=== PATIENT | female | born 1985 | race American Indian/Alaskan Native ===

== ENCOUNTER 2016-10-24 21:55 | Emergency (ER) | payer OTHER ==
[2016-10-24 22:21] VITALS: BP 113/80
--- NOTE | 2016-10-25 08:46 | XRay Report ---
Right hip 2 views. History: Pain after trauma. Findings: There are no fractures or other acute findings. Calcification seen adjacent to the femoral head, also noted on the previous study and February of 2016. This may be related to old trauma or bursitis. Impression: No acute findings.
--- NOTE | 2016-10-29 19:20 | ED Elopement Review ---
ED Pt Elopement review - Call Back decision Pt Call Back Decision: Pt to F/U with PMD
== END 2016-10-25 05:51 | disposition left against medical advice (07) ==
LOC: ED 21:55
DX: M25.551 Pain in right hip (principal); Z53.21 Procedure and treatment not carried out due to patient leaving prior to being seen by health care provider

== ENCOUNTER 2017-07-16 16:25 | Emergency (ER) | payer MEDICAID, OTHER ==
[2017-07-16 16:52] VITALS: BP 107/63
--- NOTE | 2017-07-16 18:23 | XRay Report ---
FINAL REPORT EXAM: XR HIP 2-3V RT HISTORY: fall, pain TECHNIQUE: Right hip and AP pelvis PRIORS: None. FINDINGS: No fracture identified. No dislocation seen. Femoral head maintains a normal contour. Joint spaces within normal limits. Adjacent bony pelvis is unremarkable. Periarticular soft tissue calcification noted superior margin of the right hip. Two like a ordonez clips are noted in the pelvis IMPRESSION: Periarticular calcifications noted superior margin of the right hip could be degenerative in nature. Status post tubal ligation No acute traumatic abnormality identified
[2017-07-16] MEDS ORDERED: PERCOCET 5/325 PO ONE (19:09)
[2017-07-16] MEDS ORDERED: ZOFRAN ODT PO ONE (19:10)
[2017-07-16] MEDS ORDERED: MOTRIN PO ONE (19:10)
--- NOTE | 2017-07-16 19:18 | Emergency Department Report ---
ED Lower Extremity HPI - General Chief Complaint: Back Pain/Injury Stated Complaint: HIP PAIN Time Seen by Provider: 07/16/17 19:03 Source: patient Mode of arrival: Ambulatory Limitations: No Limitations - History of Present Illness Initial Comments: 32-year-old female past medical history right hip dysplasia, right hip osteoarthritis presents with complaint of acute on chronic right hip pain. Patient states she accidentally fell out of a chair earlier this afternoon. Patient is ambulatory but state that her right hip aches. Patient is awake alert and oriented 3 but is in an irritated mood. States that she has an orthopedic physician she follows up with, has had multiple cortisone shots. -: This afternoon Injury: Hip: Right Place: home Severity: moderate Severity scale (0 -10): 6 Worsens With: weight bearing Context: fall - Related Data Previous Rx's Medication Instructions Recorded Last Taken Type Acetaminophen/Codeine [Tylenol #3] 1 tab PO Q4HR PRN #20 tablet 02/26/16 Unknown Rx Acetaminophen/Codeine [Tylenol 1 tab PO Q6H PRN #12 tab 07/16/17 Unknown Rx /Codeine # 3 tab] Allergies Allergy/AdvReac Type Severity Reaction Status Date / Time buspirone HCl [From BuSpar] Allergy Hives Verified 10/24/16 22:17 hydrocodone Allergy Itching Verified 10/24/16 22:18 ED Review of Systems ROS: Stated complaint: HIP PAIN Other details as noted in HPI Constitutional: denies: chills, fever Eyes: denies: eye pain, eye discharge, vision change ENT: denies: ear pain, throat pain Respiratory: denies: cough, shortness of breath, wheezing Cardiovascular: denies: chest pain, palpitations Endocrine: no symptoms reported Gastrointestinal: denies: abdominal pain, nausea, diarrhea Genitourinary: denies: urgency, dysuria, discharge Musculoskeletal: as per HPI, arthralgia (chronic right hip pain). denies: back pain, joint swelling Skin: denies: rash, lesions Neurological: denies: headache, weakness, paresthesias Psychiatric: denies: anxiety, depression Hematological/Lymphatic: denies: easy bleeding, easy bruising ED Past Medical Hx - Past Medical History Additional medical history: States "stomach issues". anxiety - Surgical History Additional Surgical History: Right hip surgery 2014. - Social History Smoking Status: Current Every Day Smoker - Medications Home Medications: Home Medications Medication Instructions Recorded Confirmed Last Taken Type Acetaminophen/Codeine [Tylenol #3] 1 tab PO Q4HR PRN #20 tablet 02/26/16 Unknown Rx Acetaminophen/Codeine [Tylenol 1 tab PO Q6H PRN #12 tab 07/16/17 Unknown Rx /Codeine # 3 tab] ED Physical Exam - General Limitations: No Limitations General appearance: alert, in no apparent distress - Head Head exam: Present: atraumatic, normocephalic - Eye Eye exam: Present: normal appearance, PERRL, EOMI - ENT ENT exam: Present: mucous membranes moist - Neck Neck exam: Present: normal inspection - Respiratory Respiratory exam: Present: normal lung sounds bilaterally. Absent: respiratory distress - Cardiovascular Cardiovascular Exam: Present: regular rate, normal rhythm. Absent: systolic murmur, diastolic murmur, rubs, gallop - GI/Abdominal GI/Abdominal exam: Present: soft, normal bowel sounds - Extremities Exam Extremities exam: Present: normal inspection - Expanded Lower Extremity Exam Right Hip exam: Present: normal inspection, full ROM (hip flexion/extnesion painful but preserved, internal and external rotation intact) Upper Leg exam: Present: normal inspection, full ROM Knee exam: Present: normal inspection, full ROM Lower Leg exam: Present: normal inspection, full ROM Ankle exam: Present: normal inspection, full ROM Foot/Toe exam: Present: normal inspection, full ROM Neuro vascular tendon exam: Present: no vascular compromise (distal pulses intact) - Back Exam Back exam: Present: normal inspection - Neurological Exam Neurological exam: Present: alert, oriented X3, CN II-XII intact - Psychiatric Psychiatric exam: Present: normal affect, normal mood - Skin Skin exam: Present: warm, dry, intact, normal color. Absent: rash ED Course Vital Signs 07/16/17 16:48 Temperature 98.4 F Pulse Rate 66 Respiratory 20 Rate Blood Pressure 107/63 O2 Sat by Pulse 99 Oximetry ED Lower Extremity MDM - Medical Decision Making A/P: Acute on chronic right hip pain 1-patient referred to pain management and states she has orthopedic follow-up in 4 days with her long-term with ortho physician 2-patient ambulatory with walker 3-short course Tylenol 3, patient does not want hydrocodone states tramadol does not work for her Critical care attestation.: If time is entered above; I have spent that time in minutes in the direct care of this critically ill patient, excluding procedure time. ED Disposition Clinical Impression: Right hip pain Disposition: DC-01 TO HOME OR SELFCARE Is pt being admited?: No Does the pt Need Aspirin: No Condition: Stable Instructions: Hip Sprain (ED), Arthralgia (ED) Prescriptions: Acetaminophen/Codeine [Tylenol /Codeine # 3 tab] 1 tab PO Q6H PRN #12 tab PRN Reason: Pain Referrals: [facility] [Provider Group] - 3-5 Days Forms: Accompanied Note, Work/School Release Form(ED) Time of Disposition: 19:23
== END 2017-07-16 19:35 | disposition home or self-care (01) ==
LOC: ED 16:25
DX: M25.551 Pain in right hip (principal); G89.29 Other chronic pain; F17.200 Nicotine dependence, unspecified, uncomplicated; Z88.6 Allergy status to analgesic agent
CPT/HCPCS: 99284; Q0162

== ENCOUNTER 2018-09-29 11:03 | Emergency (ER) | payer MEDICAID ==
[2018-09-29 11:16] VITALS: BP 110/76
--- NOTE | 2018-09-29 11:20 | Emergency Department Report ---
Chief Complaint: Sore Throat Stated Complaint: SORE THROAT/ EAR PAIN/ FEVER Time Seen by Provider: 09/29/18 11:16 - HPI History of Present Illness: 2 day hx urti- sore throat face pain/aches fever per pt- not here taking otc abc intact VSS strep screen sent MSE completed - Exam Vital Signs: Vital Signs 09/29/18 11:14 Temperature 99.2 F Pulse Rate 83 Respiratory 18 Rate Blood Pressure 110/76 O2 Sat by Pulse 100 Oximetry MSE screening note: Focused history and physical exam performed. Due to findings the following was ordered: ED Disposition for MSE Condition: Stable
[2018-09-29] MEDS ORDERED: IBUPROFEN PO ONE (11:56)
[2018-09-29] MEDS ORDERED: LIDOCAINE VISCOUS 2% MM ONE (11:56)
--- NOTE | 2018-09-29 12:09 | Emergency Department Report ---
ED ENT HPI - General Chief complaint: Sore Throat Stated complaint: SORE THROAT/ EAR PAIN/ FEVER Time Seen by Provider: 09/29/18 11:16 Source: patient Mode of arrival: Ambulatory Limitations: No Limitations - History of Present Illness Initial comments: This is a 33-year-old female nontoxic, well nourished in appearance, no acute signs of distress presents to the ED with c/o of sore throat. Patient describes sore throat as swallowing razer blades. Patient denies any fever, chills, headache, stiff neck, nausea, vomiting, chest pain, shortness of breath, numbness or tingling. Patient denies any drooling or hoarseness. Patient stated allergies to hydrocodone and buspirone HCL. MD complaint: sore throat -: days(s) Location: throat Severity: mild Severity scale (0 -10): 8 Quality: aching Consistency: constant Improves with: none Worsens with: swallowing Associated Symptoms: pain with swallowing, sore throat. denies: fever, cough, gum swelling, toothache, tinnitus, hearing loss, discharge from ear, rhinorrhea - Related Data Previous Rx's Medication Instructions Recorded Last Taken Type Acetaminophen/Codeine [Tylenol #3] 1 tab PO Q4HR PRN #20 tablet 02/26/16 Unknown Rx Acetaminophen/Codeine [Tylenol 1 tab PO Q6H PRN #12 tab 07/16/17 Unknown Rx /Codeine # 3 tab] Amoxicillin [Amoxicillin TAB] 875 mg PO BID #20 tablet 09/29/18 Unknown Rx Ibuprofen [Motrin] 600 mg PO Q8H PRN #20 tablet 09/29/18 Unknown Rx Nystas/Diphen/Xyl Visc/Mylanta 15 ml MM Q6H PRN 5 Days ml 09/29/18 Unknown Rx [Magic Mouthwash] Allergies Allergy/AdvReac Type Severity Reaction Status Date / Time buspirone HCl [From BuSpar] Allergy Hives Verified 10/24/16 22:17 hydrocodone Allergy Itching Verified 10/24/16 22:18 ED Dental HPI - General Chief complaint: Sore Throat Stated complaint: SORE THROAT/ EAR PAIN/ FEVER Time Seen by Provider: 09/29/18 11:16 Source: patient Mode of arrival: Ambulatory Limitations: No Limitations - Related Data Previous Rx's Medication Instructions Recorded Last Taken Type Acetaminophen/Codeine [Tylenol #3] 1 tab PO Q4HR PRN #20 tablet 02/26/16 Unknown Rx Acetaminophen/Codeine [Tylenol 1 tab PO Q6H PRN #12 tab 07/16/17 Unknown Rx /Codeine # 3 tab] Amoxicillin [Amoxicillin TAB] 875 mg PO BID #20 tablet 09/29/18 Unknown Rx Ibuprofen [Motrin] 600 mg PO Q8H PRN #20 tablet 09/29/18 Unknown Rx Nystas/Diphen/Xyl Visc/Mylanta 15 ml MM Q6H PRN 5 Days ml 09/29/18 Unknown Rx [Magic Mouthwash] Allergies Allergy/AdvReac Type Severity Reaction Status Date / Time buspirone HCl [From BuSpar] Allergy Hives Verified 10/24/16 22:17 hydrocodone Allergy Itching Verified 10/24/16 22:18 ED Review of Systems ROS: Stated complaint: SORE THROAT/ EAR PAIN/ FEVER Other details as noted in HPI Constitutional: denies: chills, fever Eyes: denies: eye pain, eye discharge, vision change ENT: throat pain. denies: ear pain Respiratory: denies: cough, shortness of breath, wheezing Cardiovascular: denies: chest pain, palpitations Endocrine: no symptoms reported Gastrointestinal: denies: abdominal pain, nausea, diarrhea Genitourinary: denies: urgency, dysuria, discharge Musculoskeletal: denies: back pain, joint swelling, arthralgia Skin: denies: rash, lesions Neurological: denies: headache, weakness, paresthesias Psychiatric: denies: anxiety, depression Hematological/Lymphatic: denies: easy bleeding, easy bruising ED Past Medical Hx - Past Medical History Previous Medical History?: Yes Additional medical history: States "stomach issues". anxiety - Surgical History Past Surgical History?: Yes Additional Surgical History: Right hip surgery 2014. - Social History Smoking Status: Current Every Day Smoker Substance Use Type: Alcohol, Marijuana - Medications Home Medications: Home Medications Medication Instructions Recorded Confirmed Last Taken Type Acetaminophen/Codeine [Tylenol #3] 1 tab PO Q4HR PRN #20 tablet 02/26/16 Unknown Rx Acetaminophen/Codeine [Tylenol 1 tab PO Q6H PRN #12 tab 07/16/17 Unknown Rx /Codeine # 3 tab] Amoxicillin [Amoxicillin TAB] 875 mg PO BID #20 tablet 09/29/18 Unknown Rx Ibuprofen [Motrin] 600 mg PO Q8H PRN #20 tablet 09/29/18 Unknown Rx Nystas/Diphen/Xyl Visc/Mylanta 15 ml MM Q6H PRN 5 Days ml 09/29/18 Unknown Rx [Magic Mouthwash] ED Physical Exam - General Limitations: No Limitations General appearance: alert, in no apparent distress - Head Head exam: Present: atraumatic, normocephalic - Expanded ENT Exam Expanded Ear exam: Present: normal external inspection Mouth exam: Present: normal external inspection. Absent: drooling, trismus, muffled voice Teeth exam: Present: normal inspection Throat exam: Positive: tonsillar erythema, tonsillomegaly (2+), other (uvula midline.). Negative: tonsillar exudate, R peritonsillar mass, L peritonsillar mass - Neck Neck exam: Present: normal inspection, full ROM. Absent: tenderness, meningismus, lymphadenopathy - Extremities Exam Extremities exam: Present: normal inspection, full ROM - Back Exam Back exam: Present: normal inspection, full ROM - Neurological Exam Neurological exam: Present: alert, oriented X3 - Psychiatric Psychiatric exam: Present: normal affect, normal mood - Skin Skin exam: Present: warm, dry, intact, normal color. Absent: rash ED Course Vital Signs 09/29/18 11:14 Temperature 99.2 F Pulse Rate 83 Respiratory 18 Rate Blood Pressure 110/76 O2 Sat by Pulse 100 Oximetry - Reevaluation(s) Reevaluation #1: 09/29/18 12:08 Patient is speaking in full sentences with no signs of distress noted. Critical care attestation.: If time is entered above; I have spent that time in minutes in the direct care of this critically ill patient, excluding procedure time. ED Disposition Clinical Impression: Pharyngitis Qualifiers: Pharyngitis/tonsillitis etiology: unspecified etiology Qualified Code(s): J02.9 - Acute pharyngitis, unspecified Disposition: - TO HOME OR SELFCARE Is pt being admited?: No Does the pt Need Aspirin: No Condition: Stable Instructions: Pharyngitis (ED) Additional Instructions: Follow-up with a primary care doctor in 3-5 days or if symptoms worsen and continue return to emergency room as soon as possible. Prescriptions: Amoxicillin [Amoxicillin TAB] 875 mg PO BID #20 tablet Nystas/Diphen/Xyl Visc/Mylanta [Magic Mouthwash] 15 ml MM Q6H PRN 5 Days ml PRN Reason: Sore Throat Ibuprofen [Motrin] 600 mg PO Q8H PRN #20 tablet PRN Reason: Pain [facility]Other] - 3-5 Days PRIMARY CAREMD [Referring] - 3-5 Days CARLYN ESTRADA MD [Staff Physician] - 3-5 Days [facility] [Outside] - 3-5 Days [facility] [Outside] - 3-5 Days Forms: Work/School Release Form(ED)
[2018-09-29 12:23] LABS: Bacteria,Urine 1+ /HPF (Negative); Bilirubin,Urine NEG (Negative); Blood,Urine NEG (Negative); Color,Urine Yellow (Yellow); HCG Qualitative,Urine Negative (Negative); Mucus,Urine FEW /HPF; Protein,Urine <15 mg/dL mg/dL (Negative)
== END 2018-09-29 12:22 | disposition home or self-care (01) ==
LOC: ED 11:03
DX: J02.9 Acute pharyngitis, unspecified (principal); F17.200 Nicotine dependence, unspecified, uncomplicated; F12.10 Cannabis abuse, uncomplicated; Z88.1 Allergy status to other antibiotic agents; Z88.4 Allergy status to anesthetic agent
CPT/HCPCS: 81001; 81025; 87116; 87430

== ENCOUNTER 2020-03-03 23:22 | Emergency (ER) | payer SELFPAY ==
[2020-03-04 00:47] VITALS: BP 128/91
--- NOTE | 2020-03-04 04:14 | XRay Report ---
RIGHT HIP, 2 VIEWS INDICATION / CLINICAL INFORMATION: hip pain. COMPARISON: 07/16/2017 FINDINGS: No significant osseous abnormality. No fracture or dislocation. There are prominent calcific densitie s along the superior aspect of the right hip joint. These were present on the prior exam probably not appreciably changed. The appearance is most suggestive for calcific tendinitis. Evidence of tubal ligation clips. IMPRESSION: 1. Probable calcific tendinitis of the right hip. Left hip periarticular calcific densities are stabl e compared with older radiographs. 2. No significant osseous abnormality. Signer Name: Serene Tran MD Signed: 03/04/2020 4:10 AM Workstation Name: [id number]
[2020-03-04] MEDS ORDERED: traMADol 50 MG TAB PO ONE (04:47)
--- NOTE | 2020-03-04 04:58 | Emergency Department Report ---
ED Lower Extremity HPI - General Chief Complaint: Extremity Problem,Nontraumatic Stated Complaint: RT PELVIC/HIP PAIN Time Seen by Provider: 03/04/20 03:48 Source: patient Mode of arrival: Ambulatory Limitations: No Limitations - History of Present Illness Initial Comments: This is a 34-year-old female nontoxic, well nourished in appearance, no acute si gns of distress presents to the ED with c/o of acute on chronic left hip pain x several years. Patient denies any recent injuries or trauma. Patient denies any numbness, tingling, fever, chills, nausea, vomiting, chest pain, shortness of breath, headache, stiff neck. Patient denies any joint swelling or joint redness. Patient denies decreased range of motion. Patient stated has decreased gait due to pain. Patient stated allergies to hydrocodone and Buspirone. MD Complaint: hip injury -: year(s) Injury: Hip: Left Severity: mild Severity scale (0 -10): 8 Improves With: immobilization Worsens With: weight bearing, movement, palpation Associated Symptoms: able to partially bear weight. denies: snap/pop sensation, swelling, numbness, tingling, unable to bear weight - Related Data Previous Rx's Medication Instructions Recorded Last Taken Type Acetaminophen/Codeine [Tylenol #3] 1 tab PO Q4HR PRN #20 tablet 02/26/16 Unknown Rx Acetaminophen/Codeine [Tylenol 1 tab PO Q6H PRN #12 tab 07/16/17 Unknown Rx /Codeine # 3 tab] Amoxicillin [Amoxicillin TAB] 875 mg PO BID #20 tablet 09/29/18 Unknown Rx Ibuprofen [Motrin] 600 mg PO Q8H PRN #20 tablet 09/29/18 Unknown Rx Nystas/Diphen/Xyl Visc/Mylanta 15 ml MM Q6H PRN 5 Days ml 09/29/18 Unknown Rx [Magic Mouthwash] Naproxen 500 mg PO Q12H PRN #12 tablet 03/04/20 Unknown Rx Allergies Allergy/AdvReac Type Severity Reaction Status Date / Time buspirone HCl [From BuSpar] Allergy Hives Verified 10/24/16 22:17 hydrocodone Allergy Itching Verified 10/24/16 22:18 ED Review of Systems ROS: Stated complaint: RT PELVIC/HIP PAIN Other details as noted in HPI Constitutional: denies: chills, fever Eyes: denies: eye pain, eye discharge, vision change ENT: denies: ear pain, throat pain Respiratory: denies: cough, shortness of breath, wheezing Cardiovascular: denies: chest pain, palpitations Endocrine: no symptoms reported Gastrointestinal: denies: abdominal pain, nausea, diarrhea Genitourinary: denies: urgency, dysuria, discharge Musculoskeletal: denies: back pain, joint swelling, arthralgia Skin: denies: rash, lesions Neurological: denies: headache, weakness, paresthesias Psychiatric: denies: anxiety, depression Hematological/Lymphatic: denies: easy bleeding, easy bruising ED Past Medical Hx - Past Medical History Previous Medical History?: Yes Additional medical history: States "stomach issues". anxiety. R hip dysplasia - Surgical History Additional Surgical History: Right hip surgery 2014. - Social History Smoking Status: Current Some Day Smoker Substance Use Type: None - Medications Home Medications: Home Medications Medication Instructions Recorded Confirmed Last Taken Type Acetaminophen/Codeine [Tylenol #3] 1 tab PO Q4HR PRN #20 tablet 02/26/16 Unknown Rx Acetaminophen/Codeine [Tylenol 1 tab PO Q6H PRN #12 tab 07/16/17 Unknown Rx /Codeine # 3 tab] Amoxicillin [Amoxicillin TAB] 875 mg PO BID #20 tablet 09/29/18 Unknown Rx Ibuprofen [Motrin] 600 mg PO Q8H PRN #20 tablet 09/29/18 Unknown Rx Nystas/Diphen/Xyl Visc/Mylanta 15 ml MM Q6H PRN 5 Days ml 09/29/18 Unknown Rx [Magic Mouthwash] Naproxen 500 mg PO Q12H PRN #12 tablet 03/04/20 Unknown Rx ED Physical Exam - General Limitations: No Limitations General appearance: alert, in no apparent distress - Head Head exam: Present: atraumatic, normocephalic - Neck Neck exam: Present: normal inspection, full ROM. Absent: tenderness, meningismus, lymphadenopathy - Extremities Exam Extremities exam: Present: full ROM, tenderness, normal capillary refill. Absent: joint swelling, calf tenderness - Expanded Lower Extremity Exam Left Hip exam: Present: full ROM, tenderness, external rotation, internal rotation, pelvic stability. Absent: swelling, abrasion, laceration, ecchymosis, deformity, crepidus, dislocation, erythema, shortening Upper Leg exam: Present: normal inspection, full ROM. Absent: tenderness, swelling Knee exam: Present: normal inspection, full ROM. Absent: tenderness, swelling Lower Leg exam: Present: normal inspection, full ROM. Absent: tenderness, swelling Ankle exam: Present: normal inspection, full ROM. Absent: tenderness, swelling Foot/Toe exam: Present: normal inspection, full ROM. Absent: tenderness, swelling Neuro vascular tendon exam: Present: no vascular compromise Gait: Positive: observed and limited by pain - Back Exam Back exam: Present: normal inspection, full ROM. Absent: tenderness, CVA tenderness (R), CVA tenderness (L), muscle spasm, paraspinal tenderness, vertebral tenderness, rash noted - Neurological Exam Neurological exam: Present: alert, oriented X3 - Psychiatric Psychiatric exam: Present: normal affect, normal mood - Skin Skin exam: Present: warm, dry, intact, normal color. Absent: rash ED Course Vital Signs 03/04/20 00:41 Temperature 98.1 F Pulse Rate 94 H Respiratory 18 Rate Blood Pressure 128/91 O2 Sat by Pulse 99 Oximetry - Reevaluation(s) Reevaluation #1: 03/04/20 04:55 Patient is speaking in full sentences with no signs of distress noted. - Consultations Consultation #1: 03/04/20 04:58 Patient has been consulted with Dr. Morrison about patient history, physical exam, and xray results agrees to discharge plan of care. ED Lower Extremity MDM - Radiology Data Referring Physician: RASHAD MENCHACA Patient Name: SALVADOR KAY Date of : 1985 Sex: Female Report Date: 2020-03-04 Report Status: Finalized [facility] [address] [place] [address] XRay Report Signed Patient: SALVADOR KAY MR#: [id number] : 1985 Acct:[id number] Age/Sex: 34 / F ADM Date: 03/03/20 Loc: ED Attending Dr: Ordering Physician: RASHAD MENCHACA NP Date of Service: 03/04/20 Procedure(s): XR hip 2-3V RT Accession Number(s): [id number] cc: RASHDA MENCHACA NP Fluoro Time In Minutes: RIGHT HIP, 2 VIEWS INDICATION / CLINICAL INFORMATION: hip pain. COMPARISON: 07/16/2017 FINDINGS: No significant osseous abnormality. No fracture or dislocation. There are prominent calcific densities along the superior aspect of the right hip joint. These were present on the prior exam probably not appreciably changed. The appearance is most suggestive for calcific tendinitis. Evidence of tubal ligation clips. IMPRESSION: 1. Probable calcific tendinitis of the right hip. Left hip periarticular calcific densities are stable compared with older radiographs. 2. No significant osseous abnormality. Signer Name: Serene Tran MD Signed: 03/04/2020 4:10 AM Workstation Name: [id number] Transcribed By: Dictated By: Serene Tran MD Electronically Authenticated By: Serene Tran MD Signed Date/Time: 03/04/20409 DD/ 5 TD/TT: - Medical Decision Making This is a 34-year-old female that presents with right hip strain. Patient is stable and was examined by me. I referred patient to an orthopedic doctor for further evaluation for possible MRI. X-ray has been obtained and dictated by the radiologist. Patient is notified of the x-ray report with noted by the patient. Patient does have normal gait with no tenderness and no joint swelling. No ecchymosis. no joint redness or swelling. Not warm to touch. No signs of cellulites present. Patient was instructed to RICE therapy. Patient received Mallory for pain and stated patient family member will drive patient home after discharge. Stated pain is well controlled prior to discharge. Patient is discharged with Naproxen. At time of discharge, the patient does not seem toxic or ill in appearance. No acute signs of distress noted. Patient agrees to discharge treatment plan of care. No further questions noted by the patient. Critical care attestation.: If time is entered above; I have spent that time in minutes in the direct care of this critically ill patient, excluding procedure time. ED Disposition Clinical Impression: Right hip tendinitis Strain of right hip Qualifiers: Encounter type: initial encounter Qualified Code(s): S76.011A - Strain of muscle, fascia and tendon of right hip, initial encounter Disposition: - TO HOME OR SELFCARE Is pt being admited?: No Does the pt Need Aspirin: No Condition: Stable Instructions: RICE Therapy (ED) Additional Instructions: Follow-up with a orthopedic doctor in 3-5 days or if symptoms worsen and continue return to emergency room as soon as possible. No physical activity that extremity until cleared by orthopedic doctor Prescriptions: Naproxen 500 mg PO Q12H PRN #12 tablet PRN Reason: Pain , Severe (7-10) Referrals: PRIMARY MD GALDINO [Primary Care Provider] - 3-5 Days NIRMAL MENDOZA MD [Staff Physician] - 3-5 Days Forms: Work/School Release Form(ED) Time of Disposition: 05:00
== END 2020-03-04 05:25 | disposition home or self-care (01) ==
LOC: ED 23:22
DX: S76.011A Strain of muscle, fascia and tendon of right hip, initial encounter (principal); M76.891 Other specified enthesopathies of right lower limb, excluding foot; F41.9 Anxiety disorder, unspecified; F17.200 Nicotine dependence, unspecified, uncomplicated; Z88.8 Allergy status to other drugs, medicaments and biological substances; Z79.899 Other long term (current) drug therapy; Z98.890 Other specified postprocedural states; X58.XXXA Exposure to other specified factors, initial encounter; Y93.89 Activity, other specified; Y92.89 Other specified places as the place of occurrence of the external cause; Y99.8 Other external cause status
CPT/HCPCS: 99283

== ENCOUNTER 2021-10-29 03:18 | Emergency (ER) | payer SELFPAY ==
[2021-10-29 03:47] VITALS: BP 120/80
== END 2021-10-29 08:54 | disposition left against medical advice (07) ==
LOC: ED 03:18
DX: H92.02 Otalgia, left ear (principal); Z53.21 Procedure and treatment not carried out due to patient leaving prior to being seen by health care provider